=== PATIENT | male | born 2000 | race Two or more races ===

== ENCOUNTER 2022-02-02 03:33 | Inpatient (IN) | payer MEDICARE, OTHER ==
[~2022-02-02] VITALS: Ht 177.8 cm; Wt 60.3 kg
[2022-02-02] VITALS (50 sets, daily range): BP systolic 102–132; BP diastolic 58–89
[2022-02-02 04:14] LABS: Hematocrit 44.5 % (41.0-53.0); Hemoglobin 15.6 g/dL (13.5-17.5); Mean Corpuscular Hemoglobin 29.4 pg (28.0-32.0); Mean Corpuscular Hgb Conc. 35.1 g/dL (32.0-36.0); Mean Corpuscular Volume 83.7 fL (80.0-100.0); Red Blood Cells 5.31 10^6/uL (4.5-5.90); Red Cell Distribution Width 13.4 % (11.8-14.3); White Blood Cell 6.9 10^3/uL (4.4-10.8)
[2022-02-02] MEDS ORDERED: dilTIAZem 25 MG/5 ML VIAL IV ONE (04:15)
[2022-02-02] MEDS ORDERED: dilTIAZem 125mg/125ml BAG KIT 125 ML IV ONE (04:15)
[2022-02-02] MEDS ORDERED: ADENOSINE 6 MG/2 ML INJ IV ONE (04:15)
[2022-02-02 04:32] LABS: Band Neutrophils % (manual) 0; Basophils % (manual) 0 (0.0-2.0); Blast Cells 0; Metamyelocytes % 0; Myelocytes % 0; Promyelocytes % 0; Reactive Lymphocytes 0
[2022-02-02 04:33] LABS: Magnesium 2.4 mg/dL (1.6-2.6); Potassium 3.3 mmol/L (3.5-5.1)
[2022-02-02 04:38] LABS: Bilirubin, Total 0.9 mg/dL (0.2-1.0); Total Protein 7.6 g/dL (6.4-8.2)
[2022-02-02] MEDS ORDERED: POTASSIUM EFFERVESENT TAB 25 MEQ PO ONE (05:15)
[2022-02-02 05:49] LABS: Lymphocytes % (manual) 70 (10.0-50.0)
[2022-02-02 05:50] LABS: Eosinophils % (manual) 1 (0-7); Monocytes % (manual) 7 (0-12)
[2022-02-02] MEDS ORDERED: TEMAZEPAM 15 MG CAP PO PRN (07:15)
[2022-02-02] MEDS ORDERED: ONDANSETRON HCL 4 MG/2 ML VIAL IV PRN (07:15)
[2022-02-02] MEDS ORDERED: dilTIAZem 125mg/125ml BAG KIT 100 ML IV SCH (07:15)
[2022-02-02] MEDS ORDERED: MORPHINE SULFATE INJECTION 2 MG/ML SYRG IV PRN (07:15)
[2022-02-02] MEDS ORDERED: NITROGLYCERIN 0.4 MG SL TAB SL PRN (07:15)
[2022-02-02 09:19] LABS: Urine Bacteria NONE SEEN /hpf (None Seen); Urine Blood Negative /uL (Negative); Urine Specific Gravity 1.014 (1.001-1.035); Urine WBC 1 /hpf (0 - 3)
[2022-02-02] MEDS: ASPirin 81 mg TAB PO SCH (09:43)
[2022-02-02] MEDS: PANTOPRAZOLE 40 MG TAB PO SCH (09:43)
[2022-02-02] MEDS: ENOXAPARIN SOD 40 MG/0.4 ML SYRINGE SC SCH (09:43)
[2022-02-02 10:02] LABS: Alcohol, Urine < 3.0 mg/dL (0-10); Amphetamine Screen, Urine NEGATIVE (NEGATIVE); Barbiturate Scree,Urine NEGATIVE (NEGATIVE); Benzodiazephine Screen, Urine NEGATIVE (NEGATIVE); Cannabinoid Screen, Urine NEGATIVE (NEGATIVE); Cocaine Screen, Urine NEGATIVE (NEGATIVE); Opiate Scree,Urine NEGATIVE (NEGATIVE); Phencyclidine Screen, Urine NEGATIVE (NEGATIVE)
[2022-02-02] MEDS ORDERED: POTASSIUM CHL 20 Meq TABLET PO ONE (10:30)
[2022-02-02] MEDS ORDERED: AMIODARONE HCL 200 MG TAB PO ONE (11:15)
[2022-02-02] MEDS ORDERED: METOPROLOL SUCCINATE XL 50 MG TAB PO ONE (11:15)
[2022-02-02] MEDS ORDERED: AMIODARONE HCL 200 MG TAB PO SCH (22:00)
[2022-02-03 05:00] VITALS: BP 119/69
[2022-02-03 06:10] LABS: BUN/Creatinine Ratio 10.9; Calcium 9.3 mg/dL (8.5-10.1); Potassium 4.7 mmol/L (3.5-5.1)
[2022-02-03 08:25] VITALS: BP 126/79
[2022-02-03] MEDS ORDERED: METOPROLOL SUCCINATE XL 50 MG TAB PO SCH (10:00)
[2022-02-03] MEDS: PANTOPRAZOLE 40 MG TAB PO SCH (10:08)
[2022-02-03] MEDS: ASPirin 81 mg TAB PO SCH (10:08)
[2022-02-03] MEDS: ENOXAPARIN SOD 40 MG/0.4 ML SYRINGE SC SCH (10:10)
[2022-02-03] MEDS ORDERED: METO25TA36 PO (11:23)
[2022-02-03 12:14] VITALS: BP 126/79
[2022-02-03 12:45] VITALS: BP 115/77
== END 2022-02-03 14:16 | disposition home or self-care (01) | DRG 201 ==
LOC: ER 03:45 → TELE 07:12 → ICU WEST 08:36 → TELE-WESTW 21:14
PROVIDERS: ADMIT Nurse Practitioner; ATTEND Internal Medicine
DX: I48.0 Paroxysmal atrial fibrillation (principal); I50.31 Acute diastolic (congestive) heart failure; D68.69 Other thrombophilia; E87.6 Hypokalemia; J45.909 Unspecified asthma, uncomplicated; Z20.822 Contact with and (suspected) exposure to COVID-19
CPT/HCPCS: 36415; 71045; 80048; 80053; 80307; 81001; 82947; 83036; 83735; 84443; 84484; 85007; 85027; 87081; 93306; 96365; 96375; 99291; G0378; J0153; J2405

== ENCOUNTER 2025-06-27 07:02 | Emergency (ER) | payer OTHER ==
[~2025-06-27] VITALS: Ht 175.3 cm; Wt 70.3 kg
[~2025-06-27 07:02] MED LIST: METO25TA36 PO
[2025-06-27 07:03] VITALS: TEMP 98.3
--- NOTE | 2025-06-27 07:19 | ED.PDOC ---
HPI Comments 25-YEAR-OLD MALE WITH A HISTORY OF LOW POTASSIUM, AND ANXIETY PRESENTS TO THE ED FOR THE C/C OF SHARP LEFT-SIDED CHEST PAIN WITH THE ASSOCIATED PALPITATIONS. PATIENT STATES THAT HE HAD 2 EPISODES OF SHARP CHEST PAIN THAT WOKE UP FROM A SLEEP LAST NIGHT. PATIENT NOTES THAT HIS CHEST PAIN SIT SUBSIDED AND HAS NO PAIN AT THIS TIME. PATIENT DENIES ANY NAUSEA, VOMITING, DIARRHEA, ANY PAIN UPON PALPITATION, OR ANY OTHER ASSOCIATED SYMPTOMS, MODIFIERS AT THIS TIME. Chief Complaint: Chest Pain Time Seen by MD: 07:15 Reviewed Notes: Nurses Notes, Medications, Allergies Allergies: Coded Allergies: NO KNOWN ALLERGIES (Unverified , 02/02/22) Home Meds Active Scripts Metoprolol Succinate (Toprol Xl) 25 Mg Tab, 0.5 TAB PO DAILY for 30 Days, #15 TAB 0 Refills 12.5 mg po daily Prov:YUE MILLER MD 02/03/22 Information Source: Patient Mode of Arrival: Ambulatory Severity: Moderate Timing: Hours Duration: Since onset, Hours Prehospital treatment: None Location: Chest (L) Radiation: No Radiation Quality: Sharp Onset: At Rest Cardiac Risk Factors: None PE Risk Factors: None History of: None Modifying Factors: Nothing Associated Signs and Symptoms: None Past Medical History PAST MEDICAL HISTORY: Anxiety Surgical History: Denies all surgeries Family History Family History: Reviewed,noncontributory to illness Social History Smoker: Non-Smoker Alcohol: Denies ETOH Use Drugs: Denies Drug Use Lives In: Home Constitutional: denies: chills, diaphoresis, fatigue, fever, malaise, sweats, weakness, others EENTM: denies: blurred vision, double vision, ear bleeding, ear discharge, ear drainage, ear pain, ear ringing, eye pain, eye redness, hearing loss, mouth pain, mouth swelling, nasal discharge, nose bleeding, nose congestion, nose pain, photophobia, tearing, throat pain, throat swelling, voice changes, others Respiratory: denies: cough, hemoptysis, orthopnea, SOB at rest, shortness of breath, SOB with excertion, stridor, wheezing, others Cardiovascular: reports: chest pain; denies: dizzy spells, diaphoresis, Dyspnea on exertion, edema, irregular heart beat, left arm pain, lightheadedness, palpitations, PND, syncope, others Gastrointestinal: denies: abdomen distended, abdominal pain, blood streaked bowels, constipated, diarrhea, dysphagia, difficulty swallowing, hematemesis, melena, nausea, poor appetite, poor fluid intake, rectal bleeding, rectal pain, vomiting, others Genitourinary: denies: burning, dysuria, flank pain, frequency, hematuria, incontinence, penile discharge, penile sore, pain, testicle pain, testicle swelling, urgency, others Neurological: denies: dizziness, fainting, headache, left sided numbness, left sided weakness, numbness, paresthesia, pre-existing deficit, right sided numbness, right sided weakness, seizure, speech problems, tingling, tremors, weakness, others Musculoskeletal: denies: back pain, gout, joint pain, joint swelling, muscle pain, muscle stiffness, neck pain, others Integumetry: denies: bruises, change in color, change in hair/nails, dryness, laceration, lesions, lumps, rash, wounds, others Allergic/Immunocompromised: denies: Difficulty Healing, Frequent Infections, Hives, Itching, others Hematologic/Lymphatic: denies: anemia, blood clots, easy bleeding, easy bruising, swollen glands, others Endocrine: denies: excessive hunger, excessive sweating, excessive thirst, excessive urination, flushing, intolerance to cold, intolerance to heat, unex plained weight gain, unexplained weight loss, others Psychiatric: denies: anxiety, bipolar disorder, depression, hopeless, panic disorder, schizophrenia, sleepless, suicidal, others All Other Systems: Reviewed and Negative Physical Exam General Appearance: No Apparent Distress, Normal HEENT: Normal ENT Inspection, PERRL/EOMI, Pharynx Normal, TMs Normal Neck: Full Range of Motion, Non-Tender, Normal, Normal Inspection Respiratory: Chest Non-Tender, Lungs Clear, No Accessory Muscle Use, No Res piratory Distress, Normal Breath Sounds Cardiovascular: No Edema, No JVD, No Murmur, No Gallop, Normal Peripheral Pulses, Regular Rate/Rhythm Breast Exam: Deferred Gastrointestinal: No Organomegaly, Non Tender, No Pulsatile Mass, Normal Bowel Sounds, Soft Genitalia: Deferred Pelvic: Deferred Rectal: Deferred Extremities: No calf tenderness, Normal capillary refill, Normal inspection, Normal range of motion, Non-tender, No pedal edema Musculoskeletal : Apperance: Normal 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 Was a procedure done?: No CP Differential Dx Differential Diagnosis: Angina, Anxiety / Panic Attack, Electrolyte Disorder, Hyperthyroidism, Hyperventilation Differential Diagnosis: N/A Differential Diagnosis: Angina, Esophageal reflux/spasm X-Ray, Labs, Meds, VS Vital Signs Date Time Temp Pulse Resp B/P (MAP) Pulse Ox O2 Delivery O2 Flow Rate FiO2 06/27/25 09:09 78 18 135/83 (100) 99 06/27/25 09:09 83 18 100 Room Air 06/27/25 07:08 73 06/27/25 07:03 98.3 89 20 152/77 99 98.3 Lab Test 06/27/25 08:16 06/27/25 07:19 Range/Units Troponin I High Sensitivity 6 7 </=54 ng/L White Blood Count 6.4 4.4-10.8 10^3/uL Red Blood Count 5.67 4.5-5.90 10^6/uL Hemoglobin 16.8 13.5-17.5 g/dL Hematocrit 48.3 41.0-53.0 % Mean Corpuscular Volume 85.1 80.0-100.0 fL Mean Corpuscular Hemoglobin 29.6 28.0-32.0 pg Mean Corpuscular Hemoglobin Concent 34.8 32.0-36.0 g/dL Red Cell Distribution Width 13.7 11.8-14.3 % Platelet Count 200 140-450 10^3/uL Mean Platelet Volume 8.6 6.9-10.8 fL Neutrophils (%) (Auto) 37.0-80.0 % Lymphocytes (%) (Auto) 10.0-50.0 % Monocytes (%) (Auto) 0.0-12.0 % Basophils (%) (Auto) 0.0-2.0 % Neutrophils # (Auto) 1.6-8.6 10 ^3/uL Lymphocytes # (Auto) 0.4-5.4 10 ^3/uL Monocytes # (Auto) 0-1.3 10 ^3/uL Differential Total Cells Counted 100.0 100 Neutrophils % (Manual) 25 L 37.0-80.0 Band Neutrophils % (Manual) 0 Lymphocytes % (Manual) 70 H 10.0-50.0 Monocytes % (Manual) 5 0-12 Eosinophils % (Manual) 0 0-7 Basophils % (Manual) 0 0.0-2.0 Metamyelocytes % (manual) 0 Myelocytes % (Manual) 0 Promyelocytes % (Manual) 0 Blast Cells % (Manual) 0 Reactive Lymphocytes 0 Platelet Estimate Adequate Red Blood Cell Morphology Normal Sodium Level 143 136-145 mmol/L Potassium Level 3.6 3.5-5.1 mmol/L Chloride Level 104 98-107 mmol/L Carbon Dioxide Level 28 20-31 mmol/L Anion Gap 11 5-15 Blood Urea Nitrogen 5 L 9-23 mg/dL Creatinine 0.99 0.700-1.30 mg/dL Glomerular Filtration Rate Calc 107 >90 mL/min BUN/Creatinine Ratio 5.1 L 10.0-20.0 Serum Glucose 100 74-106 mg/dL Calcium Level 9.5 8.7-10.4 mg/dL PATIENT: MODESTO WOODWARD ACCT: [id number] UNIT: [id number] : 2000 LOC: ER ROOM / BED: / AGE / SEX: 25 / M ADM STATUS: REG ER SERVICE [id number] ORDERING PHYSICIAN: DARIANA MARION PROCEDURE(s): CXR1 - CHEST XRAY 1 VIEW REASON: CHEST PAIN ORDER NUMBER(s): [id number], ACCESSION NUMBER(s): [id number] CHEST RADIOGRAPH Indication:CHEST PAIN Technique: Single frontal view of the chest was obtained COMPARISON: None FINDINGS: Lines and Tubes: None Lungs: Clear Pleura: No effusion. No pneumothorax. Cardiomediastinal contours: Unremarkable Bones: Mild S shaped thoracolumbar scoliosis. IMPRESSION: 1. No acute disease. X-Ray, Labs, Meds, VS Comment EXTERNAL MEDICAL RECORDS REVIEWED: [NONE] INDEPENDENT HISTORIANS: [NONE] SOCIAL DETERMINANTS OF HEALTH: [NONE] LABS ORDERED: CBC, BMP, 3 REPEAT TROPONIN, 3 REPEAT EKG, ORDERED AND PENDING REVIEWED AND INTERPRETED RESULTS: NORMAL IMAGING ORDERED: CHEST X-RAY ORDERED TREATMENTS ORDERED: NO PROCEDURES PERFORMED: NONE CRITICAL CARE TIME: NONE I HAVE DISCUSSED THE PATIENT WITH THE ATTENDING PHYSICIAN (ESTHER) AND S/HE AGREES WITH THE PATIENT'S PLAN OF CARE AND DISPOSITION. BASED ON HISTORY OF PRESENT ILLNESS, AND PHYSICAL EXAM, PATIENT WILL BE DISCHARGED HOME. SHARED DECISION MAKING: DISCUSSED WITH PATIENT THAT THEIR WORKUP WAS NORMAL. PATIENT INSTRUCTED TO FOLLOW UP WITH PRIMARY CARE PROVIDER IN 1-2 DAYS FOR RE- EVALUATION OF SYMPTOMS. PATIENT VERBALIZES UNDERSTANDING TO RETURN TO ED FOR NEW OR WORSENING SYMPTOMS OR IF FOLLOW UP WITH PCP CANNOT BE OBTAINED. PATIENT FEELS COMFORTABLE GOING HOME AT THIS TIME. ALL QUESTIONS ADDRESSED AT TIME OF DISCHARGE. Time of 1ST Reevaluation: 07:46 Reevaluation 1ST: Improved Patient Education/Counseling: Diagnosis, Treatment, Need For Follow Up Family Education/Counseling: Diagnosis, Treatment, No Family Present Medical Screening: No EMC Exist At This Time SEPSIS Sepsis Screen Date sepsis recognized/suspect: Jun 27, 2025 Time Sepsis recognized/suspect: 07 Recent Procedure: No On Antibiotic Therapy: No Respiratory Rate >20: No Heart Rate >90: No Temp<36 C (96.8 F) or >38.3 C: No SBP <90 or MAP <65 mmHG: No New Acute Mental Status Change: No Is the patient on CPAP, BIPAP,: No Physician Orders Electrocardigram (06/27/25 07:09) Electrocardigram (06/27/25 08:09) Electrocardigram (06/27/25 10:09) Chest Xray 1 View (06/27/25 07:11) Vital Signs Date Time Temp Pulse Resp B/P (MAP) Pulse Ox O2 Delivery O2 Flow Rate FiO2 06/27/25 09:09 78 18 135/83 (100) 99 06/27/25 09:09 83 18 100 Room Air 06/27/25 07:08 73 06/27/25 07:03 98.3 89 20 152/77 99 98.3 Laboratory Tests Test 06/27/25 07:19 White Blood Count 6.4 10^3/uL (4.4-10.8) Departure 1 Departure Time of Disposition: 09:30 Impression: Primary Impression: Atypical chest pain Disposition: 01 HOME / SELF CARE / HOMELESS Condition: Stable Additional Instructions: FOLLOW-UP WITH PCP IN 1 TO 2 DAYS. TAKE MEDICATIONS PRESCRIBED. RETURN TO ED FOR ANY NEW OR WORSENING SYMPTOMS. Discharged With: Self Critical Care Note Critical Care Time?: No Stability Stability form required: No Heart Score Heart Score: Heart Score Response (Comments) Value History N/A 0 EKG Normal 0 Age <45 0 Risk Factors No known risk factors 0 Troponin Normal limit 0 Total 0 I personally scribed for DARIANA MARION ([email or web address]) on 06/27/25 at 07:19. Electronically submitted by Tang Florez [email or web address]). I personally scribed for DARIANA MARION ([email or web address]) on 06/27/25 at 07:25. Electronically submitted by Tang Florez ([email or web address]). I personally scribed for DARIANA MARION ([email or web address]) on 06/27/25 at 08:03. Electronically submitted by Tang Florez ([email or web address]). I personally scribed for DARIANA MARION ([email or web address]) on 06/27/25 at 09:25. Electronically submitted by Tang Florez ([email or web address]). DARIANA MARION Jun 27, 2025 07:19
[2025-06-27 07:34] LABS: Hematocrit 48.3 % (41.0-53.0); Hemoglobin 16.8 g/dL (13.5-17.5); Mean Corpuscular Hemoglobin 29.6 pg (28.0-32.0); Mean Corpuscular Volume 85.1 fL (80.0-100.0)
[2025-06-27 07:38] LABS: Chloride 104 mmol/L (98-107); Potassium 3.6 mmol/L (3.5-5.1); Sodium 143 mmol/L (136-145)
[2025-06-27 07:39] LABS: Anion Gap 11 (5-15); Carbon Dioxide 28 mmol/L (20-31)
[2025-06-27 07:40] LABS: Calcium 9.5 mg/dL (8.7-10.4)
[2025-06-27 07:44] LABS: BUN/Creatinine Ratio 5.1 (10.0-20.0); Glucose 100 mg/dL (74-106)
[2025-06-27 07:45] LABS: Blood Urea Nitrogen 5 mg/dL (9-23)
[2025-06-27 07:56] LABS: RBC Morphology Normal; Total Cells Counted 100.0 (100)
--- NOTE | 2025-06-27 08:01 | DVH ---
CHEST RADIOGRAPH Indication:CHEST PAIN Technique: Single frontal view of the chest was obtained COMPARISON: None FINDINGS: Lines and Tubes: None Lungs: Clear Pleura: No effusion. No pneumothorax. Cardiomediastinal contours: Unremarkable Bones: Mild S shaped thoracolumbar scoliosis. IMPRESSION: 1. No acute disease.
[2025-06-27 09:09] VITALS: BP 135/83; RESP 18; O2SAT 100
[2025-06-27 09:31] VITALS: PULSE 73
--- NOTE | 2025-06-28 13:08 | ECG ---
[facility] Test Date: 2025-06-27 Test Time: 07:08:30 Pat Name: MODESTO MIAMI Department: ED Room: Gender: Pediatric Cardiologist: ANNITA : 2000 Requested By: DARIANA MARION Order Number: [id number] Reading MD: Measurements Intervals [place] Rate: 73 P: 61 SC: 134 QRS: 80 QRSD: 91 T: 49 QT: 354 QTc: 390 Interpretive Statements Sinus rhythm Atrial premature complex RSR' in V1 or V2, probably normal variant Please click the below link to view image of tracing.
== END 2025-06-27 09:33 | disposition home or self-care (01) ==
LOC: ER 07:04
DX: R07.89 Other chest pain (principal); Z79.899 Other long term (current) drug therapy
CPT/HCPCS: 36415; 71045; 80048; 84484; 85007; 85027; 93005